=== PATIENT | male | born 1965 | race Caucasian/White ===

== ENCOUNTER 2016-08-23 15:17 | Emergency (ER) | payer OTHER ==
[~2016-08-23] VITALS: Wt 90.0 kg
[~2016-08-23 15:17] MED LIST: IBUP800T25 PO
[2016-08-23] MEDS ORDERED: ACETAMINOPHEN 500 MG TAB PO STA (16:23)
[2016-08-23] MEDS ORDERED: DEXAMETHASONE 10 MG/ML 1 ML INJ IM ONE (16:30)
[2016-08-23] MEDS ORDERED: IBUPROFEN 800 MG TAB PO ONE (16:30)
[2016-08-23] MEDS ORDERED: IBUP800T25 PO (16:45)
[2016-08-23] MEDS ORDERED: AMO500 PO (16:45)
[2016-08-23] MEDS ORDERED: MED4DP PO (16:45)
--- NOTE | 2016-08-23 18:09 | ERD ---
ER Documentation Chief Complaint Date/Time DATE: 08/23/16 TIME: 18:06 Chief Complaint FEVER AND SORE THROAT FOR THE PAST 3 DAYS. HPI This is a very pleasant 50-year-old male with a past medical history of arthritis and schizophrenia that presents to the emergency department with his and children complaining of a sore throat has been persistent for the past 3 days. Indicates that it has been difficult for him to eat due to the pain. He denies any dysphagia or done aphasia. He states he has had a tactile fever with shaking or chills since the onset of the sore throat. He denies a decrease in urinary output states he has had no frequency urgency or dysuria and denies a productive or nonproductive cough. He has had no recent travel or antibiotic use. He denies diffuse myalgias or exhaustion. He has had no recent sick contacts. He has never had any similar symptoms in the past. ROS All systems reviewed and are negative except as per history of present illness. Medications Home Meds Active Scripts Amoxicillin* (Amoxicillin*) 500 Mg Cap, 500 MG PO Q8, #30 CAP Prov:LEYDI ZUNIGA 08/23/16 Methylprednisolone* (Medrol* DOSE PACK) 4 Mg/Dose-Pack Tab.ds.pk, 4 MG PO . DIRECTED, #1 PACKET Prov:LEYDI ZUNIGA 08/23/16 Ibuprofen* (Motrin*) 800 Mg Tab, 800 MG PO Q6H Y for PAIN AND OR ELEVATED TEMP, #30 TAB Prov:EFRAIN,LEYDI 08/23/16 Ibuprofen* (Motrin*) 800 Mg Tab, 800 MG PO Q8 for PAIN AND OR ELEVATED TEMP, # 30 TAB Prov:PARKER COHEN NP 05/22/15 Allergies Allergies: Coded Allergies: No Known Drug Allergy (Verified Allergy, Unknown, 02/21/12) PMhx/Soc History of Surgery: No Anesthesia Reaction: No Hx Neurological Disorder: No Hx Respiratory Disorders: No Hx Cardiac Disorders: No Hx Psychiatric Problems: Yes (SCHIZOPHRENIA) Hx Miscellaneous Medical Probl: No Hx Alcohol Use: No Hx Substance Use: No Hx Tobacco Use: No Physical Exam Vitals Vital Signs Date Time Temp Pulse Resp B/P Pulse Ox O2 Delivery O2 Flow Rate FiO2 08/23/16 15:20 101.5 98 21 142/81 97 Physical Exam Constitutional:Well-developed. Well-nourished. HEENT:Normocephalic. Atraumatic.Pupils were equal round reactive to light. Moist mucous membranes. Erythremia and enlargement with tonsillar exudates of the left tonsil. Uvula was midline. No tonsillar exudates erythremia of the right tonsil. No trismus. No brawny induration. No pooling of secretions within the oropharynx. Neck: No nuchal rigidity. Left anterior cervical lymphadenopathy. No posterior cervical spine tenderness or step-offs. Respiratory: Not using accessory muscles of respiration.Lungs were clear to auscultation bilaterally. No rhonchi. No rales. No wheezing. No drooling or stridor. Cardiovascular: Regular rate regular rhythm.No murmurs. No rubs were appreciated.S1, S2 normal. Distal pulses are palpable 2+ bilaterally. GI: Abdomen was soft. Nontender. Non Distended. No pulsatile abdominal masses or bruits. No rebound. No guarding. Bowel sounds were present and normal. Muscle skeletal: Full range of motion of both the upper and lower extremities bilaterally.Normal muscle tone.No assymetrical calf tenderness or swelling. Skin: No petechia, no purpura. No lesions on the palms or the soles of the feet. No maculopapular rash. NEURO: Patient was alert, awake, orientated x3.No facial droop. Gait observed and normal with no ataxia.Speech had regular rate and rhythm. No focal neurological deficits. Results 24 hrs Current Medications Medications (Trade) Dose Ordered Sig/Claudine Route PRN Reason Start Time Stop Time Status Last Admin Dose Admin Dexamethasone (Decadron) 10 mg ONCE ONCE IM 08/23/16 16:30 08/23/16 16:31 DC 08/23/16 16:31 Ibuprofen (Motrin) 800 mg ONCE ONCE PO 08/23/16 16:30 08/23/16 16:31 DC 08/23/16 16:30 Acetaminophen (Tylenol Tab) 1,000 mg ONCE STAT PO 08/23/16 16:23 08/23/16 16:25 DC 08/23/16 16:30 Procedures/MDM This patient presented to the emergency department with 3 of the 4 center criteria likely suggesting strep pharyngitis. The patient had no secondary findings to suggest Willie's angina, peritonsillar abscess or retropharyngeal abscess. The patient was febrile in the emergency department and was given ibuprofen and acetaminophen and able to swallow without any difficulty. The patient was given IM Decadron. The patient was sent home with antibiotics which included amoxicillin and a Medrol Dosepak as well as Motrin. I explained to the patient that if his symptoms worsen and do not improve that he immediately should return to the emergency department to be reevaluated. The patient was discharged home in fair condition. They were instructed to return to the emergency department at any time if there was any worsening of their condition. The patient stated they would follow up with their PCP in the next 24-48 hours to initiate a suitable medication regimen under the care of their PCP as well as to allow their PCP to monitor any drug reactions. The patient was discharged home with prescriptions after they gave informed consent to the new medication. They were also fully informed by myself on the adverse effects and adverse drug interactions in order to provide adequate safeguards to prevent possible adverse reactions to medications. Departure Diagnosis: Primary Impression: Pharyngitis, acute Pharyngitis/tonsillitis etiology: streptococcus Qualified Code: J02.0 - Acute streptococcal pharyngitis Condition: Fair Patient Instructions: Pharyngitis, Strep (Presumed) LEYDI ZUNIGA August 23, 2016 18:09
== END 2016-08-23 17:21 | disposition home or self-care (01) ==
LOC: FTE 15:17
DX: J02.0 Streptococcal pharyngitis (principal)
CPT/HCPCS: J1100; Z7610